=== PATIENT | male | born 1950 | race Caucasian/White ===

== ENCOUNTER → 2016-09-11 | Outpatient (CLI) | payer MEDICARE ==
[~2016-09-11] MED LIST: ASPIRIN EC81 MG PO; AVODART0.5 MG PO; BISOPROLOL5 MG PO; CATAPRES GENER0.1 MG PO; CIPRO 500MG TA500 MG PO; CLONIDINE0.1 MG PO; FLOMAX 0.4MG C0.4 MG PO; OMEPRAZOLE20 MG PO; PRILOSEC20 MG PO
--- NOTE | 2016-09-11 11:59 | RADIOLOGY REPORT PS360 ---
US AORTA (RETROPERITONEAL) HISTORY: Screening for aneurysm AAA COMPARISON: None FINDINGS: There is mild minimal atheromatous plaque present within the abdominal aorta. No aneurysmal dilatation is evident. The proximal common iliacs are unremarkable. IMPRESSION: Atheromatous changes, no aneurysm evident
--- NOTE | 2016-09-12 06:45 | RADIOLOGY REPORT PS360 ---
EXAM: CT LUNG LOW DOSE WO CONTRAST COMPARISON: None HISTORY: 65-year-old asymptomatic male with greater than 30 pack-year smoking history currently smoking TECHNIQUE: The exam was performed on a GE Light Speed [address] scanner using 2.93 mGy CTDI. A low dose helical CT CHEST was performed on a multi-detector scanner The LDCT was performed in a facility that meets the criteria for the screening program. Data regarding this exam was submitted to [employer] which is an approved registry. The order for this exam indicates that it came as a result of a lung cancer screening counseling shard decision-making visit that included all the elements required of such a visit including smoking cessation. The radiologist interpreting this exam meets the [facility] criteria for the LDCT lung cancer screening program. The exam is reported using the Lung-RADS classification scale and reported to the ACR registry. NOTE: This study was performed for the specific purposes of lung cancer screening and is not an alternative to diagnostic chest CT. RADIATION DOSE: CTDI vol(CT dose Index-volume) = 2.93mG DLP (Dose Length Product) = 101.3 mGcm FINDINGS: There is a 6 mm noncalcified nodule in the right apex. 3 mm noncalcified subpleural nodule right upper lobe laterally. Calcified 4 mm nodule right upper lobe medially. Noncalcified 3 mm nodule right upper lobe anteriorly 3 mm calcified nodule left lung base. 3 mm calcified nodule left apex LUNG PARENCHYMA Emphysema: Minimal centrilobular edematous changes Airways disease: Mild peribronchial thickening with hyperinflation Fibrosis: Minimal fibrotic or atelectatic change lingula OTHER ANATOMIC REGIONS Lymph Nodes: No enlarged lymph nodes evident. Scattered small nodes are present in the mediastinum and zelalem Pleura: Unremarkable Cardiac: Coronary artery calcifications OTHER FINDINGS: No other pertinent findings evident IMPRESSION: 1. Lung RADS Category: 3 probably benign 2. Other findings: Coronary artery calcifications suggesting coronary artery disease. Obstructive chronic bronchitis Old granulomatous disease RECOMMENDATIONS: 6 monthd LDCT follow-up
== END ==
LOC: RAD 07:55
DX: I71.4 Abdominal aortic aneurysm, without rupture (principal); Z87.891 Personal history of nicotine dependence; Z12.2 Encounter for screening for malignant neoplasm of respiratory organs
CPT/HCPCS: G0297

== ENCOUNTER → 2016-10-01 | Outpatient (CLI) | payer MEDICARE ==
[2016-10-01 09:51] LABS: BILIRUBIN, INDIRECT 0.13 mg/dL (0-0.9)
== END ==
LOC: LAB 08:22
PROVIDERS: Internal Medicine
DX: I10 Essential (primary) hypertension (principal); I25.10 Atherosclerotic heart disease of native coronary artery without angina pectoris; I48.91 Unspecified atrial fibrillation; J44.9 Chronic obstructive pulmonary disease, unspecified; Z72.0 Tobacco use

== ENCOUNTER → 2016-10-10 | Outpatient (CLI) | payer MEDICARE | LOC: RT 12:47 | DX: J44.9 Chronic obstructive pulmonary disease, unspecified (principal); I25.10 Atherosclerotic heart disease of native coronary artery without angina pectoris; I48.91 Unspecified atrial fibrillation; I10 Essential (primary) hypertension; F17.200 Nicotine dependence, unspecified, uncomplicated ==

== ENCOUNTER 2016-12-08 11:27 | Outpatient (CLI) | payer MEDICARE | END 2016-12-08 13:57 | LOC: ACC 11:27 | DX: I48.91 Unspecified atrial fibrillation (principal); Z79.01 Long term (current) use of anticoagulants; Z51.81 Encounter for therapeutic drug level monitoring | CPT/HCPCS: G0463 ==

== ENCOUNTER 2017-06-08 10:52 | Outpatient (CLI) | payer MEDICARE | END 2017-06-08 15:02 | LOC: ACC 10:52 | DX: I48.91 Unspecified atrial fibrillation (principal); Z79.01 Long term (current) use of anticoagulants; Z51.81 Encounter for therapeutic drug level monitoring | CPT/HCPCS: G0463 ==

== ENCOUNTER 2017-06-29 10:55 | Outpatient (CLI) | payer MEDICARE | END 2017-06-29 14:37 | LOC: ACC 10:55 | DX: I48.91 Unspecified atrial fibrillation (principal); Z79.01 Long term (current) use of anticoagulants; Z51.81 Encounter for therapeutic drug level monitoring | CPT/HCPCS: G0463 ==

== ENCOUNTER 2017-08-10 10:52 | Outpatient (CLI) | payer MEDICARE | END 2017-08-10 14:56 | LOC: ACC 10:52 | DX: I48.91 Unspecified atrial fibrillation (principal); Z79.01 Long term (current) use of anticoagulants; Z51.81 Encounter for therapeutic drug level monitoring | CPT/HCPCS: G0463 ==